=== PATIENT | male | born 1985 | race Hispanic/Latino ===

== ENCOUNTER 2019-09-15 11:11 | Emergency (ER) | payer SELFPAY ==
--- NOTE | 2019-09-15 12:03 | Event Note ---
ED Screening Note Date of service: 09/15/19 Time: 11:57 ED Screening Note: 34 yo male with no prior medical conditions who presents the ED complaining of vomiting bright red blood that began last night. Patient states that he has had some upper abdominal discomfort prior to the vomiting. Patient states after that he tried to drink some Gatorade and water and threw it up again. This initial assessment/diagnostic orders/clinical plan/treatment(s) is/are subject to change based on patients health status, clinical progression and re- assessment by fellow clinical providers in the ED. Further treatment and workup at subsequent clinical providers discretion. Patient/guardian urged not to elope from the ED as their condition may be serious if not clinically assessed and managed. Initial orders include: CBC, CMP, PT PTT and lipase ordered
[2019-09-15 12:24] LABS: Basophils # (Auto) 0.1 K/mm3 (0.0-0.1); Basophils % (Auto) 0.7 % (0.0-1.8); Eosinophils % (Auto) 0.6 % (0.0-4.3); Hemoglobin 15.7 gm/dl (11.8-15.2); Lymphocytes % (Auto) 24.6 % (13.4-35.0); Mean Corpuscular HGB Conc 33 % (32-34); Mean Corpuscular Volume 91 fl (84-94); Monocytes # (Auto) 0.6 K/mm3 (0.0-0.8); Monocytes % (Auto) 7.8 % (0.0-7.3); Platelet Count 224 K/mm3 (140-440); Red Blood Count 5.14 M/mm3 (3.65-5.03); Red Cell Distribution Width 13.1 % (13.2-15.2)
[2019-09-15] MEDS ORDERED: ONDANSETRON 4 MG/2 ML INJ IV ONE (12:25)
[2019-09-15] MEDS ORDERED: SODIUM CHLORIDE 0.9% 1000 ML 1,000 ML IV ONE (12:25)
[2019-09-15] MEDS ORDERED: PANTOPRAZOLE 40 MG INJ IV ONE (12:25)
[2019-09-15 12:38] LABS: INR 1.08 (0.87-1.13)
[2019-09-15 12:39] LABS: Partial Thromboplastin Time 24.6 Sec. (24.2-36.6)
--- NOTE | 2019-09-15 12:40 | Emergency Department Report ---
ED Abdominal Pain HPI - General Chief Complaint: Abdominal Pain Stated Complaint: CHEST PAIN Time Seen by Provider: 09/15/19 12:23 Source: patient Mode of arrival: Ambulatory Limitations: No Limitations - History of Present Illness Initial Comments: Patient is 34 years old male with no significant past medical history. Patient presented to the ER complaining of 2 weeks history of nausea and vomiting and epigastric abdominal pain. Patient stated that sometimes he vomited blood. Patient stated that he was dry heaving also. Patient informed that the night before this started he was drinking alcohol. Patient denied any hematochezia or melena. No hemoptysis or hematuria. Patient also denied any fever, chills, runny nose or congestion. No chest pain or shortness of breath. MD Complaint: abdominal pain -: week(s) (2) - Related Data Allergies Allergy/AdvReac Type Severity Reaction Status Date / Time No Known Allergies Allergy Unverified 09/15/19 11:19 ED Review of Systems ROS: Stated complaint: CHEST PAIN Other details as noted in HPI Comment: All other systems reviewed and negative Constitutional: denies: chills, fever Respiratory: denies: cough, shortness of breath, SOB with exertion, SOB at rest, wheezing Cardiovascular: palpitations. denies: chest pain Gastrointestinal: abdominal pain, nausea, vomiting, hematemesis. denies: diarrhea, constipation, melena, hematochezia Musculoskeletal: denies: back pain Neurological: denies: headache, weakness, numbness, paresthesias, confusion, abnormal gait ED Past Medical Hx - Past Medical History Previous Medical History?: No - Surgical History Past Surgical History?: No - Social History Smoking Status: Current Every Day Smoker Substance Use Type: Alcohol, Other ED Physical Exam - General Limitations: No Limitations General appearance: alert, in no apparent distress, anxious - Head Head exam: Present: atraumatic, normocephalic, normal inspection - Eye Eye exam: Present: normal appearance, PERRL - ENT ENT exam: Present: normal exam, normal orophraynx, mucous membranes moist - Neck Neck exam: Present: normal inspection, full ROM. Absent: tenderness, meningismus, lymphadenopathy, thyromegaly - Respiratory Respiratory exam: Present: normal lung sounds bilaterally - Cardiovascular Cardiovascular Exam: Present: tachycardia - GI/Abdominal GI/Abdominal exam: Present: soft, normal bowel sounds. Absent: distended, tenderness, guarding, rebound, rigid, organomegaly, mass, bruit, pulsatile mass, hernia - Extremities Exam Extremities exam: Present: normal inspection, full ROM, normal capillary refill. Absent: pedal edema, calf tenderness - Back Exam Back exam: Present: normal inspection, full ROM. Absent: CVA tenderness (R), CVA tenderness (L) - Neurological Exam Neurological exam: Present: alert, oriented X3, CN II-XII intact, normal gait, reflexes normal - Psychiatric Psychiatric exam: Present: normal mood - Skin Skin exam: Present: warm, intact, normal color ED Course Vital Signs 09/15/19 11:19 Temperature 98.0 F Pulse Rate 113 H Respiratory 18 Rate Blood Pressure 130/82 O2 Sat by Pulse 96 Oximetry ED Medical Decision Making - Lab Data Result diagrams: 09/15/19 12:06 09/15/19 12:06 - Medical Decision Making Patient is 34 years old male with no significant past medical history. Patient presented to the ER complaining of 2 weeks history of nausea and vomiting and epigastric abdominal pain. Patient stated that sometimes he vomited blood. Patient stated that he was dry heaving also. Patient informed that the night before this started he was drinking alcohol. Patient denied any hematochezia or melena. No hemoptysis or hematuria. Patient also denied any fever, chills, runny nose or congestion. No chest pain or shortness of breath. Patient received normal saline, Zofran and Protonix. Patient stated that he is feeling much better. Labs reviewed and is unremarkable including a hemoglobin of 15. I believe patient symptom is most likely related to alcoholic gastritis. Patient given prescription for Pepcid and advised to follow-up with his primary care physician in the next 2 to 3 days and to return to the ER if he develop any new symptoms. Patient also given [facility] for follow-up. Critical care attestation.: If time is entered above; I have spent that time in minutes in the direct care of this critically ill patient, excluding procedure time. ED Disposition Clinical Impression: Abdominal pain, Alcoholic gastritis Disposition: - TO HOME OR SELFCARE Is pt being admited?: No Condition: Stable Instructions: Gastritis (ED), Abdominal Pain (ED) Referrals: PRIMARY CARE, [Primary Care Provider] - 3-5 Days [facility] [Provider Group] - 3-5 Days
[2019-09-15 13:08] LABS: Alanine Aminotransferase 41 units/L (7-56); Albumin 4.7 g/dL (3.9-5); BUN/Creatinine Ratio 11; Blood Urea Nitrogen 14 mg/dL (9-20); Calcium 9.9 mg/dL (8.4-10.2); Hemolysis Index 9
[2019-09-15] MEDS ORDERED: LIDOCAINE VISCOUS 2% 15 ML ORAL LIQD PO ONE (13:23)
[2019-09-15] MEDS ORDERED: ALUM-MAG HYDROXIDE-SIMETHICONE 200-200-20MG/5ML ORAL LIQD 30 ML PO ONE (13:23)
[2019-09-15 14:26] VITALS: BP 129/90
== END 2019-09-15 14:26 | disposition home or self-care (01) ==
LOC: ED 11:11
DX: K29.20 Alcoholic gastritis without bleeding (principal); R10.9 Unspecified abdominal pain; F17.200 Nicotine dependence, unspecified, uncomplicated
CPT/HCPCS: 36415; 80053; 83690; 85025; 85610; 85730; 86850; 86900; 86901; 93005; 96374; 96375; 99283; C9113; J2405; J7030; 80320; G0480